=== PATIENT | female | born 1995 | race Two or more races ===

== ENCOUNTER 2021-11-06 01:29 | Emergency (ER) | payer MEDICAID ==
[~2021-11-06] VITALS: Ht 162.6 cm; Wt 58.0 kg
[2021-11-06 04:00] LABS: BASOPHILS % 0.4 % (0.0-2.0); EOSINOPHILS % 1.7 % (0.0-5.0); HEMATOCRIT. 36.6 % (36.0-48.0); HEMOGLOBIN. 11.9 g/dL (12.0-16.0); LYMPHOCYTES % 15.2 % (20.0-50.0); MEAN CORPUSCULAR HEMOGLOBIN 29.6 pg (28.0-32.0); MEAN PLATELET VOLUME 9.3 fl (7.4-10.4); MONOCYTES % 11.7 % (2.0-8.0); PLATELET 271 x1000/uL (130-400); RED BLOOD CELL COUNT 4.02 mill/uL (4.2-5.4); RED CELL DISTRIBUTION WIDTH 15.8 % (11.6-14.6)
[2021-11-06 04:03] LABS: CHLORIDE 104 mEq/L (98-107)
[2021-11-06 04:06] LABS: HCG SCREEN NEGATIVE
[2021-11-06 04:10] LABS: ETHANOL BLOOD < 10 mg/dL
[2021-11-06] MEDS ORDERED: OLANZAPINE 10 MG/VIAL IM ONE (04:15)
[2021-11-06 04:16] LABS: *BARBITURATES SCREEN URINE NEGATIVE (NEGATIVE); *BENZODIAZEPINES SCREEN URINE NEGATIVE (NEGATIVE); *COCAINE SCREEN URINE NEGATIVE (NEGATIVE); METHADONE URINE SCREEN NEGATIVE (NEGATIVE); OPIATES URINE SCREEN NEGATIVE (NEGATIVE); PHENCYCLIDINE URINE SCREEN NEGATIVE (NEGATIVE)
[2021-11-06 04:21] LABS: *AMPHETAMINES SCREEN URINE PRESUMTIVE POSITIVE (NEGATIVE); CANNABINOID URINE SCREEN PRESUMTIVE POSITIVE (NEGATIVE)
[2021-11-06] MEDS: OLANZAPINE 5MG TABLET ODT PO SCH ×2 (09:00→17:50)
[2021-11-07] MEDS: OLANZAPINE 5MG TABLET ODT PO SCH ×2 (08:55→17:39)
[2021-11-07] MEDS ORDERED: SODIUM CHLORIDE 0.9% 1,000 ML IV ONE (21:30)
[2021-11-08] MEDS: OLANZAPINE 5MG TABLET ODT PO SCH ×2 (09:01→17:52)
[2021-11-09] MEDS: OLANZAPINE 5MG TABLET ODT PO SCH ×2 (09:38→17:38)
[2021-11-10] MEDS: OLANZAPINE 5MG TABLET ODT PO SCH ×2 (10:59→19:19)
[2021-11-11 08:45] VITALS: BP 119/68
== END 2021-11-11 08:45 | disposition home or self-care (01) ==
LOC: ER 01:58 → EDBD 01:58 → ER 11-11 08:45
DX: F23 Brief psychotic disorder (principal); U07.1 COVID-19; R45.851 Suicidal ideations; F91.8 Other conduct disorders; F16.10 Hallucinogen abuse, uncomplicated; F15.10 Other stimulant abuse, uncomplicated; F12.10 Cannabis abuse, uncomplicated; F31.9 Bipolar disorder, unspecified; Z78.1 Physical restraint status; Z75.1 Person awaiting admission to adequate facility elsewhere
CPT/HCPCS: 36415; 70450; 80053; 80305; 80307; 80320; 80329; 84703; 85025; 96372; 99285; C9803; J3490; J7030; U0003; U0005; Z7610; G0480